=== PATIENT | female | born 1970 | race Caucasian/White ===

== ENCOUNTER 2020-04-30 15:17 | Outpatient (CLI) | payer OTHER | END 2020-04-30 15:18 | disposition home or self-care (01) | LOC: CSHMRI 15:17 | PROVIDERS: ATTEND Neurological Surgery | DX: M51.36 Other intervertebral disc degeneration, lumbar region (principal); M51.26 Other intervertebral disc displacement, lumbar region | CPT/HCPCS: 72148 ==

== ENCOUNTER 2022-09-12 15:10 | Observation (INO) | payer OTHER ==
[2022-09-12] MEDS ORDERED: Morphine 4 MG/ML VIAL ONE ×2 (15:45→16:51)
[2022-09-12] MEDS ORDERED: Ketorolac Tromethamine 30 MG/ML VIAL ONE (15:45)
[2022-09-12] MEDS ORDERED: Dexamethasone 10 MG/ML VIAL ONE (16:50)
[2022-09-12] MEDS ORDERED: Ondansetron PF 4 MG/2 ML Vial ONE ×2 (16:51→20:02)
[2022-09-12] MEDS ORDERED: Sucralfate 1 GM/10 ML UDCUP ONE (17:04)
[2022-09-12] MEDS ORDERED: fentaNYL 50 mcg/mL 1 mL Vial ONE (18:41)
[2022-09-12] MEDS ORDERED: Calcium Carbonate 500 MG ChewTAB PO PRN (19:27)
[2022-09-12] MEDS ORDERED: Senokot S 8.6-50 MG TAB PO PRN (19:27)
[2022-09-12] MEDS ORDERED: Guaifenesin DM 100-10/5 ML UDCUP PO PRN (19:27)
[2022-09-12] MEDS ORDERED: Acetaminophen 325 MG TAB PO PRN (19:27)
[2022-09-12] MEDS ORDERED: HYDROcodone/Acetaminophen 5/325 mg Tablet PO PRN (19:27)
[2022-09-12] MEDS ORDERED: Morphine 4 MG/ML VIAL SLOW IVP PRN (19:28)
[2022-09-12] MEDS ORDERED: Morphine 2 MG/ML VIAL SLOW IVP PRN (20:00)
[2022-09-12 20:08] LABS: #Eosinphils 0.1 10x3/uL (0.0-0.5); #Monocytes 0.1 10x3/uL (0.0-1.1); %Basophils 0.3 % (0.0-2.0); %Eosinophils 0.5 % (0.0-6.0); %Lymphocytes 11.6 % (18.0-47.0); %Monocytes 1.3 % (0.0-10.0); Hematocrit 42.9 % (34.9-44.5); Hemoglobin 14.7 g/dL (12.0-15.5); Mean Corpuscular HGB CONC 34.3 g/dL (32.0-36.0); Mean Corpuscular Hemoglobin 30.9 pg (27.0-33.0); Mean Corpuscular Volume 90.1 fl (81.6-98.3); Mean Platelet Volume 10.1 fl (7.4-10.4); Platelet Count 273 10x3/uL (150-450); RBC Distribution Width 12.1 % (11.5-14.5); Red Blood Cell (RBC) Count 4.76 10x6/uL (3.90-5.03); White Blood Cell (WBC) Count 9.3 10x3/uL (3.5-10.5)
[2022-09-12 20:30] LABS: Anion Gap 14 mmol/L (10-20); BUN (Urea Nitrogen) 9 mg/dL (9.8-20.1); Calc. Creatinine Clearance 0 mL/min (70-130); Calcium 8.6 mg/dL (7.8-10.44); Carbon Dioxide 21 mmol/L (22-29); Chloride 108 mmol/L (98-107); Estimated GFR 83; Glucose 98 mg/dL (70-105); Sodium 139 mmol/L (136-145)
[2022-09-12] MEDS ORDERED: DULoxetine 30 MG CAP PO SCH (21:00)
[2022-09-12] MEDS: Ketorolac Tromethamine 30 MG/ML VIAL IVP SCH (21:50)
[2022-09-12] MEDS: Famotidine 20 MG TAB PO SCH (21:52)
[2022-09-13] MEDS ORDERED: Metoclopramide HCl 10 MG/2 ML VIAL IVP SCH (01:00)
[2022-09-13 01:32] VITALS: BMI 23.3
[2022-09-13] MEDS: Ondansetron PF 4 MG/2 ML Vial IVP PRN ×2 (02:35→09:30)
[2022-09-13] MEDS: Gabapentin 300 MG CAP PO SCH ×3 (02:36→16:25)
[2022-09-13] MEDS: Cyclobenzaprine 10 MG TAB PO SCH ×3 (02:36→16:26)
[2022-09-13] MEDS ORDERED: Ketorolac Tromethamine 30 MG/ML VIAL IVP SCH (06:45)
[2022-09-13] MEDS: Ketorolac Tromethamine 30 MG/ML VIAL IVP SCH (07:48)
[2022-09-13] MEDS ORDERED: Lidocaine 5% Patch TD SCH (09:00)
[2022-09-13] MEDS ORDERED: Lidocaine 4% Patch TD SCH (09:00)
[2022-09-13] MEDS ORDERED: Polyethylene Glycol 3350 17 GM Packet PO SCH (09:00)
[2022-09-13] MEDS: Famotidine 20 MG TAB PO SCH (12:02)
[2022-09-13 13:01] VITALS: TEMP 97.6
[2022-09-13 13:02] VITALS: BP 118/59
[2022-09-13 14:45] LABS: Bilirubin Neg (Negative); Blood, Urine Negative (Negative); Clarity Clear (Clear); Glucose, Urine (Dipstick) Normal (Negative); Ketone, Urine Negative (Negative); Leukocyte Negative (Negative); Nitrite Negative (Negative); Protein, Urine (Dipstick) Negative (Neg-Trace); Urobilinogen Normal mg/dL (Less than 2)
[2022-09-13 15:00] LABS: Bacteria/HPF 1+ HPF (None Seen); RBC/HPF None Seen HPF (0-3); Squamous Epithelial 0-3 HPF (0-3); WBC/HPF None Seen HPF (0-3)
[2022-09-13] MEDS ORDERED: Transdermal Patch Removal TOP SCH (21:00)
== END 2022-09-13 16:20 | disposition home or self-care (01) ==
LOC: CSHERS 15:10 → CSHTELE 21:04
PROVIDERS: ADMIT Student in an Organized Health Care Education/Training Program; ATTEND Hospitalist
DX: M54.16 Radiculopathy, lumbar region (principal); M53.3 Sacrococcygeal disorders, not elsewhere classified; F41.9 Anxiety disorder, unspecified; F32.A Depression, unspecified; K21.9 Gastro-esophageal reflux disease without esophagitis; Z87.891 Personal history of nicotine dependence; Z91.012 Allergy to eggs; Z91.018 Allergy to other foods; Z88.0 Allergy status to penicillin; Z88.6 Allergy status to analgesic agent; Z79.899 Other long term (current) drug therapy
CPT/HCPCS: 36415; 72148; 74176; 80048; 81001; 85025; 86140; 94760; 96372; 96374; 96375; 96376; G0378; J1100; J1650; J1885; J2270; J2272; J2405; J2765; J3010